=== PATIENT | female | born 1950 | race Caucasian/White ===

== ENCOUNTER → 2020-06-23 | Outpatient (CLI) | payer MEDICARE, BC | END | disposition home or self-care (01) | LOC: LAB 15:51 → LAB SHORT 15:51 | DX: Z00.00 Encounter for general adult medical examination without abnormal findings (principal); E61.1 Iron deficiency; E78.5 Hyperlipidemia, unspecified; K21.9 Gastro-esophageal reflux disease without esophagitis; R10.13 Epigastric pain | CPT/HCPCS: 87338 ==

== ENCOUNTER 2021-10-05 13:35 | Day surgery (SDC) | payer MEDICARE, BC ==
[~2021-10-05] VITALS: Ht 157.5 cm; Wt 64.0 kg
[~2021-10-05 13:35] MED LIST: ATOR10 PO; MUPIROCIN1 G1; RIZATRIPTAN5 M1 PO
== END 2021-10-05 15:15 | disposition home or self-care (01) ==
LOC: ORSCSDS 13:35
PROVIDERS: Surgery
PROC: 0DJD8ZZ Inspection of Lower Intestinal Tract, Via Natural or Artificial Opening Endoscopic (ICD-10-PCS; principal; 2021-10-05 14:45)
DX: Z12.11 Encounter for screening for malignant neoplasm of colon (principal); D64.9 Anemia, unspecified; K21.9 Gastro-esophageal reflux disease without esophagitis; E78.5 Hyperlipidemia, unspecified; Z87.11 Personal history of peptic ulcer disease; Z79.899 Other long term (current) drug therapy
CPT/HCPCS: J0330; J0461; J2405; J2704; J7120